=== PATIENT | male | born 1940 | race Hispanic/Latino ===

== ENCOUNTER 2018-04-12 13:14 | Inpatient (IN) | payer MEDICARE ==
[2018-04-12 16:38] LABS: Basophils % (Auto) 0.4 % (0.0-1.8); Eosinophils # (Auto) 0.2 K/mm3 (0.0-0.4); Eosinophils % (Auto) 3.3 % (0.0-4.3); Hematocrit 25.3 % (35.5-45.6); Hemoglobin 8.4 gm/dl (11.8-15.2); Lymphocytes # (Auto) 1.2 K/mm3 (1.2-5.4); Mean Corpuscular HGB Conc 33 % (32-34); Mean Corpuscular Volume 90 fl (84-94); Monocytes # (Auto) 0.5 K/mm3 (0.0-0.8); Platelet Count 248 K/mm3 (140-440); Red Blood Count 2.83 M/mm3 (3.65-5.03); Red Cell Distribution Width 14.7 % (13.2-15.2)
[2018-04-12 16:52] LABS: Calcium 8.6 mg/dL (8.4-10.2)
[2018-04-12 17:10] LABS: Chol/HDL Ratio 3.91 %
--- NOTE | 2018-04-12 18:27 | Emergency Department Report ---
ED Dizziness HPI - General Chief Complaint: Dizziness Stated Complaint: HYPOTENSION Time Seen by Provider: 04/12/18 15:22 Source: patient Mode of arrival: Stretcher Limitations: No Limitations - History of Present Illness Initial Comments: 77-year-old male presents to ED with complaint of dizziness and hypotension at home. Patient recently discharged from this facility one week ago following cardiac arrest. Patient currently wearing a life vest. States he was seen by his airport shuttle driver Dr. Fuentes on yesterday and was told to restart his normal blood p ressure medications. Patient states he he took 2 medications last night, took all of them this morning. Patient states after he took the medications he began to feel dizzy and lightheaded. Says he took his blood pressure home and blood pressure of 60s/40s. Patient decided to come to the ED at that time. I states it is deep with somewhat by the name of Inessa at the office of [facility] and was told to d/c his hydralazine. MD Complaint: dizziness -: This afternoon Timing: sudden onset Description: lightheadedness, near-syncope Severity: moderate Improves With: remaining still Worsens With: position Associated Symptoms: weakness. denies: chest pain, confusion, diaphoresis, fever/chills, shortness of breath, syncope - Related Data Home Medications Medication Instructions Recorded Confirmed Last Taken Dorzolamide HCl/Timolol Maleat 10 ml OU BID 03/25/18 04/02/18 03/25/18 08:00 [Cosopt Eye Drops] Previous Rx's Medication Instructions Recorded Last Taken Type ALPRAZolam [Xanax TAB] 0.25 mg PO Q12H PRN #60 tablet 03/31/18 Unknown Rx Brimonidine Tartrate [Brimonidine 10 ml OU BID #1 03/31/18 Unknown Rx Tartrate 0.2%] Clopidogrel [Plavix] 75 mg PO QDAY #30 tablet 03/31/18 Unknown Rx ISOSORBIDE MONOnitrate [Imdur ER] 30 mg PO QDAY #30 tablet 03/31/18 Unknown Rx Pravastatin [Pravachol] 40 mg PO QHS #30 tablet 03/31/18 Unknown Rx glipiZIDE [glipiZIDE XL] 10 mg PO BID #60 tab.er.24 03/31/18 Unknown Rx prednisoLONE 15 ml PO QDAY 5 Days ml 03/31/18 Unknown Rx prednisoLONE ACETATE 1% [Pred 2 drops OS DAILY #1 bottle 03/31/18 Unknown Rx Forte 1%] Apixaban [Eliquis] 2.5 mg PO Q12HR #60 tablet 04/06/18 Unknown Rx Famotidine [Pepcid] 20 mg PO HS #30 tablet 04/06/18 Unknown Rx Metoprolol [Lopressor TAB] 25 mg PO BID #60 tablet 04/06/18 Unknown Rx Tamsulosin [Flomax] 0.4 mg PO QDAY #30 cap 04/06/18 Unknown Rx hydrALAZINE [Apresoline TAB] 10 mg PO Q8HR #90 tablet 04/06/18 Unknown Rx Allergies Allergy/AdvReac Type Severity Reaction Status Date / Time Neuromuscular Blockers, Allergy Headache Verified 03/25/18 17:28 Steroidal [Steroidal Neuromuscular Blockers] ED Review of Systems ROS: Stated complaint: HYPOTENSION Other details as noted in HPI Comment: All other systems reviewed and negative Constitutional: denies: chills, fever Respiratory: denies: shortness of breath Cardiovascular: denies: chest pain Gastrointestinal: denies: nausea, vomiting, diarrhea Neurological: denies: headache ED Past Medical Hx - Past Medical History Hx Hypertension: Yes Hx CVA: Yes Hx Congestive Heart Failure: Yes Hx Diabetes: Yes Hx Arthritis: Yes Hx Asthma: No Hx COPD: No Hx HIV: No Additional medical history: glucoma - Surgical History Hx Coronary Stent: No Hx Open Heart Surgery: No Hx Pacemaker: No Hx Internal Defibrillator: No Hx Cholecystectomy: No Hx Appendectomy: No Hx Breast Surgery: No Additional Surgical History: Corneal transplant(bilateral) - Social History Smoking Status: Never Smoker Substance Use Type: None - Medications Home Medications: Home Medications Medication Instructions Recorded Confirmed Last Taken Type Dorzolamide HCl/Timolol Maleat 10 ml OU BID 03/25/18 04/02/18 03/25/18 08:00 History [Cosopt Eye Drops] ALPRAZolam [Xanax TAB] 0.25 mg PO Q12H PRN #60 tablet 03/31/18 04/02/18 Unknown Rx Brimonidine Tartrate [Brimonidine 10 ml OU BID #1 03/31/18 04/02/18 Unknown Rx Tartrate 0.2%] Clopidogrel [Plavix] 75 mg PO QDAY #30 tablet 03/31/18 04/02/18 Unknown Rx ISOSORBIDE MONOnitrate [Imdur ER] 30 mg PO QDAY #30 tablet 03/31/18 04/02/18 Unknown Rx Pravastatin [Pravachol] 40 mg PO QHS #30 tablet 03/31/18 04/02/18 Unknown Rx glipiZIDE [glipiZIDE XL] 10 mg PO BID #60 tab.er.24 03/31/18 04/02/18 Unknown Rx prednisoLONE 15 ml PO QDAY 5 Days ml 03/31/18 04/02/18 Unknown Rx prednisoLONE ACETATE 1% [Pred 2 drops OS DAILY #1 bottle 03/31/18 04/02/18 Unknown Rx Forte 1%] Apixaban [Eliquis] 2.5 mg PO Q12HR #60 tablet 04/06/18 Unknown Rx Famotidine [Pepcid] 20 mg PO HS #30 tablet 04/06/18 Unknown Rx Metoprolol [Lopressor TAB] 25 mg PO BID #60 tablet 04/06/18 Unknown Rx Tamsulosin [Flomax] 0.4 mg PO QDAY #30 cap 04/06/18 Unknown Rx hydrALAZINE [Apresoline TAB] 10 mg PO Q8HR #90 tablet 04/06/18 Unknown Rx ED Physical Exam - General Limitations: No Limitations General appearance: alert, in no apparent distress - Head Head exam: Present: atraumatic, normocephalic - Eye Eye exam: Present: normal appearance - ENT ENT exam: Present: mucous membranes moist - Neck Neck exam: Present: normal inspection - Respiratory Respiratory exam: Present: normal lung sounds bilaterally. Absent: respiratory distress - Cardiovascular Cardiovascular Exam: Present: regular rate, normal rhythm, other (Life Vest in place) - GI/Abdominal GI/Abdominal exam: Present: soft. Absent: distended, tenderness - Extremities Exam Extremities exam: Present: normal inspection - Neurological Exam Neurological exam: Present: alert, oriented X3 - Psychiatric Psychiatric exam: Present: normal affect, normal mood - Skin Skin exam: Present: warm, dry, intact, normal color. Absent: rash ED Course Vital Signs 04/12/18 04/12/18 04/12/18 13:21 15:21 15:30 Temperature 97.8 F Pulse Rate 68 57 L Respiratory 16 14 Rate Blood Pressure 106/60 124/71 122/75 Blood Pressure [Left] O2 Sat by Pulse 95 Oximetry 04/12/18 04/12/18 04/12/18 15:33 15:46 16:00 Temperature 97.9 F Pulse Rate 57 L 68 65 Respiratory 14 12 15 Rate Blood Pressure 122/75 130/74 Blood Pressure 122/75 [Left] O2 Sat by Pulse 96 Oximetry 04/12/18 04/12/18 04/12/18 16:16 16:30 16:46 Temperature Pulse Rate 64 76 69 Respiratory 15 18 14 Rate Blood Pressure 130/74 130/74 130/74 Blood Pressure [Left] O2 Sat by Pulse Oximetry 04/12/18 04/12/18 04/12/18 17:00 17:16 17:30 Temperature Pulse Rate 71 84 107 H Respiratory 16 21 17 Rate Blood Pressure 132/66 132/66 118/70 Blood Pressure [Left] O2 Sat by Pulse Oximetry 04/12/18 04/12/18 04/12/18 17:46 18:00 18:16 Temperature Pulse Rate 67 86 76 Respiratory 19 23 18 Rate Blood Pressure 118/70 116/68 116/68 Blood Pressure [Left] O2 Sat by Pulse Oximetry - Consultations Consultation #1: 04/12/18 18:[address] Mccurdy, airport shuttle driver. Recommends admssion since hypotensive at home to go over home meds and observe BP. Not concerned with trop elevation and EKG change given cardiac arrest on last admission and cardiac cath that showed nonobstructive 3 vessel disease. Does not recommend heparinization. ED Medical Decision Making - Lab Data Result diagrams: 04/12/18 16:31 04/12/18 16:31 - EKG Data -: EKG Interpreted by Hi EKG shows normal: sinus rhythm Rate: normal - EKG Data When compared to previous EKG there are: changes noted (compared to 04/03/18) Interpretation: other (prolonged QT; new T wvae inversions in II, III, aVF, V2, V3) - Medical Decision Making 73-year-old male with cardiomyopathy present COPD with hypotension. This hypotension is likely due to medication effect, as patient was currently restarted on all of his normal blood pressure medications. Patient with normal BPs here in the ED throughout his stay. EKG done today to appear to that as compared to his EKG from 9 days ago. Patient also had minimal elevation in his troponin which today was 0.143, compared to 4.64 on April 02. Patient underwent cardiac catheterization on last hospital stay and was found to have three-vessel disease. Was also discharged home on a Life Vest which she is currently wearing. Spoke with Dr. Mccurdy, airport shuttle driver, does not recommend heparinization. Wants patient admitted so that current medications may be reviewed in light of his hypotension. Brendan admit to hospitalist. - Differential Diagnosis medication effect, dehydration, ACS Critical care attestation.: If time is entered above; I have spent that time in minutes in the direct care of this critically ill patient, excluding procedure time. ED Disposition Clinical Impression: Dizziness Disposition: [id number] OP ADMIT IP TO THIS HOSP Is pt being admited?: Yes Condition: Stable Referrals: PRIMARY CARE, [Primary Care Provider] - 3-5 Days Time of Disposition: 18:27
--- NOTE | 2018-04-12 22:39 | History and Physical Report ---
History of Present Illness Date of examination: 04/12/18 History of present illness: 77-year-old man history of hypertension, diabetes, CHF, CAD, CVA, glaucoma, Cervical Radiculopathy comes to the emergency room for evaluation comes to the e for low Blood pressure. Patient was just discharged from the hospital on Apr. He followed up with his metalsmith apprentice on Monday and was told to restart his antihypertensives except clonidine. He took medications on Monday, his blood pressure dropped, he felt dizzy and had generalized weakness Review of systems Constitutional: no weight loss, chills, fever Ears, eyes, nose, mouth and throat: no nasal congestion, no nasal discharge, no sinus pressure, no vision change, no red eye. Neck: No neck pain or rigidity. Cardiovascular: no palpitations, chest pain Respiratory: no cough, shortness of breath Gastrointestinal: no hematochezia, abdominal pain Genitourinary : no frequency , no hematuria Musculoskeletal: no joint swelling or muscle ache Integumentary: no rash, no pruritis Neurological: no parathesias, no focal weakness Endocrine: no cold or heat intolerance, no polyuria or polydipsia Hematologic/Lymphatic: no easy bruising, no easy bleeding, no gland swelling Allergic/Immunologic: no urticaria, no angioedema. PAST MEDICAL HISTORY: hypertension, diabetes, CHF, CVA, glaucoma,Cervical Radiculopathy, PAST SURGICAL HISTORY: Corneal transplant SOCIAL HISTORY: Denies alcohol, drugs, tobacco FAMILY HISTORY: Hypertension Medications and Allergies Allergies Allergy/AdvReac Type Severity Reaction Status Date / Time Neuromuscular Blockers, Allergy Headache Verified 03/25/18 17:28 Steroidal [Steroidal Neuromuscular Blockers] Home Medications Medication Instructions Recorded Confirmed Last Taken Type Dorzolamide HCl/Timolol Maleat 10 ml OU BID 03/25/18 04/02/18 03/25/18 08:00 History [Cosopt Eye Drops] ALPRAZolam [Xanax TAB] 0.25 mg PO Q12H PRN #60 tablet 03/31/18 04/02/18 Unknown Rx Brimonidine Tartrate [Brimonidine 10 ml OU BID #1 03/31/18 04/02/18 Unknown Rx Tartrate 0.2%] Clopidogrel [Plavix] 75 mg PO QDAY #30 tablet 12/29/18 12/31/18 Unknown Rx ISOSORBIDE MONOnitrate [Imdur ER] 30 mg PO QDAY #30 tablet 03/31/18 04/02/18 Unk nown Rx Pravastatin [Pravachol] 40 mg PO QHS #30 tablet 03/31/18 04/02/18 Unknown Rx glipiZIDE [glipiZIDE XL] 10 mg PO BID #60 tab.er.24 03/31/18 04/02/18 Unknown Rx prednisoLONE 15 ml PO QDAY 5 Days ml 03/31/18 04/02/18 Unknown Rx prednisoLONE ACETATE 1% [Pred 2 drops OS DAILY #1 bottle 03/31/18 04/02/18 Unknown Rx Forte 1%] Apixaban [Eliquis] 2.5 mg PO Q12HR #60 tablet 04/06/18 Unknown Rx Famotidine [Pepcid] 20 mg PO HS #30 tablet 04/06/18 Unknown Rx Metoprolol [Lopressor TAB] 25 mg PO BID #60 tablet 04/06/18 Unknown Rx Tamsulosin [Flomax] 0.4 mg PO QDAY #30 cap 04/06/18 Unknown Rx hydrALAZINE [Apresoline TAB] 10 mg PO Q8HR #90 tablet 04/06/18 Unknown Rx Exam - Physical Exam Narrative exam: General Apperance: The patient lying in bed, breathing comfortable HEENT: Normocephalic, atraumatic. Pupils equally round and reactive to light, EOMI, no sclericterus or JVD or thyromegaly or nodule. , no carotid bruit, mucous membranes moist, no exudate or erythema Heart: S1-S2, regular is rhythm Lungs: Clear to auscultation bilaterally, breathing comfortable Abdomen: Positive bowel sounds, soft, nontender, nondistended, no organomegaly Extremities: No edema cyanosis clubbing Skin: no rash, nodule, warm and dry Neuro: cranial nerves 2-12 intact, speech is fluent, motor/sensory intact - Constitutional Vitals: Temp Pulse Resp BP Pulse Ox 97.9 F 67 17 108/59 93 04/12/18 15:33 04/12/18 19:16 04/12/18 19:16 04/12/18 19:16 04/12/18 19:00 Results - Labs CBC & Chem 7: 04/12/18 16:31 04/12/18 16:31 Labs: Abnormal lab results 04/12/18 04/12/18 04/12/18 Range/Units 16:31 16:31 17:03 RBC 2.83 L (3.65-5.03) M/mm3 Hgb 8.4 L (11.8-15.2) gm/dl Hct 25.3 L (35.5-45.6) % [place] % (Auto) 10.0 H (0.0-7.3) % Creatinine 2.0 H (0.8-1.5) mg/dL Glucose 52 L (75-100) mg/dL POC Glucose 56 L (70-105) Troponin T 0.143 H* (0.00-0.029) ng/mL HDL Cholesterol 36 L (40-59) mg/dL 04/12/18 Range/Units 18:31 RBC (3.65-5.03) M/mm3 Hgb (11.8-15.2) gm/dl Hct (35.5-45.6) % [place] % (Auto) (0.0-7.3) % Creatinine (0.8-1.5) mg/dL Glucose (75-100) mg/dL POC Glucose 125 H (70-105) Troponin T (0.00-0.029) ng/mL HDL Cholesterol (40-59) mg/dL - Imaging and Cardiology EKG: image reviewed Chest x-ray: image reviewed Assessment and Plan Assessment Hypotension, resolved diabetes CHF, stable Coronary artery disease CVA glaucoma Cervical Radiculopathy Plan Admit to medicine Hold antihypertensives Consult cardiology Check fingersticks, insulin sliding scale Patient had recent GI bleed, anemia, will hold Lovenox
[2018-04-12] MEDS ORDERED: TYLENOL PO PRN (23:18)
[2018-04-12] MEDS ORDERED: ZOFRAN IV PRN (23:18)
[2018-04-12] MEDS ORDERED: SODIUM CHLORIDE FLUSH SYRINGE 10 ML IV PRN (23:18)
[2018-04-12] MEDS ORDERED: D50W (25GM) Syringe IV PRN (23:18)
[2018-04-13] MEDS: PERCOCET 5/325 PO PRN ×4 (00:26→20:10)
[2018-04-13 00:28] LABS: Creatine Kinase MB 2.4 ng/mL (0.0-4.0)
[2018-04-13] MEDS ORDERED: D50W (25GM) Syringe IV PRN (03:49)
[2018-04-13 03:55] LABS: Basophils % (Auto) 0.4 % (0.0-1.8); Eosinophils # (Auto) 0.2 K/mm3 (0.0-0.4); Eosinophils % (Auto) 4.9 % (0.0-4.3); Hematocrit 24.5 % (35.5-45.6); Hemoglobin 8.1 gm/dl (11.8-15.2); Lymphocytes # (Auto) 1.3 K/mm3 (1.2-5.4); Lymphocytes % (Auto) 26.4 % (13.4-35.0); Mean Corpuscular HGB Conc 33 % (32-34); Mean Corpuscular Volume 90 fl (84-94); Monocytes # (Auto) 0.6 K/mm3 (0.0-0.8); Monocytes % (Auto) 11.5 % (0.0-7.3); Platelet Count 251 K/mm3 (140-440); Red Blood Count 2.73 M/mm3 (3.65-5.03); Red Cell Distribution Width 14.9 % (13.2-15.2)
[2018-04-13 05:50] LABS: Creatine Kinase MB 2.5 ng/mL (0.0-4.0)
[2018-04-13] MEDS: HumaLOG SUB-Q SCH ×4 (07:57→21:07)
--- NOTE | 2018-04-13 07:58 | Progress Note ---
Assessment and Plan Assessment and plan: 77-year-old man history of hypertension, diabetes, CHF, CAD, CVA, glaucoma, Cervical Radiculopathy comes to the emergency room for evaluation comes to the e for low Blood pressure. Patient was just discharged from the hospital on April 06. He followed up with his reporting specialist on Monday and was told to restart his antihypertensives except clonidine. He took medications on Monday, his blood pressure dropped, he felt dizzy and had generalized weakness PAST MEDICAL HISTORY: hypertension, diabetes, CHF, CVA, glaucoma,Cervical Radiculopathy, Hypotension, resolved, was likely due to polypharmacy, optimize bp meds diabetes; insulins ss hypoglycemic 50s on presentation, A1c is 6.1, glipizide on hold CAD, CHF, stable; optimize meds Elevated trop denies CP, Cardiology consulted hx of CVA glaucoma Cervical Radiculopathy -cont meds for his chronic conditions CKD, cr is 2, bl is about 1.7 Judi vasomotor nephropathy, IVF, imrpoving PAF with hypercoaguable state on metoprolol, refusing to take OAC, the risks and benefits were explained to h im, but he continues to refuse, he said eliquis was too expensive and he does not want to take warfarin, will give ASA as that is all he will accept DVT ppx- chemical History Interval history: Review of systems Constitutional: No fevers, no malaise, no joint pains CVS: No chest pain, no orthopnea, no dyspnea on exertion, no pedal edema GI: No abdominal pain, no diarrhea, no vomiting, no constipation Respiratory: No shortness of breath, no wheezing, no coughing Hospitalist Physical - Physical exam Narrative exam: General.: Appears well, no distress, nontoxic HEENT: Moist mucous membranes, extraocular muscles intact, no lymphadenopathy Neck: supple Cardiac: S1-S2 heard Lungs: clear to auscultation bilaterally Abdomen: soft , nontender, nondistended, bowel sounds positive Extremities: no edema clubbing or cyanosis Skin: no rash or lesions Neurologic: no gross focal deficits Psych: calm, and cooperative - Constitutional Vitals: Temp Pulse Resp BP Pulse Ox 97.9 F 77 20 137/77 95 04/13/18 07:36 04/13/18 07:36 04/13/18 07:36 04/13/18 07:36 04/13/18 07:36 Results - Labs CBC & Chem 7: 04/13/18 03:48 04/12/18 16:31 Labs: Laboratory Last Values WBC 4.9 K/mm3 (4.5-11.0) 04/13/18 03:48 RBC 2.73 M/mm3 (3.65-5.03) L 04/13/18 03:48 Hgb 8.1 gm/dl (11.8-15.2) L 04/13/18 03:48 Hct 24.5 % (35.5-45.6) L 04/13/18 03:48 MCV 90 fl (84-94) 04/13/18 03:48 MCH 30 pg (28-32) 04/13/18 03:48 MCHC 33 % (32-34) 04/13/18 03:48 RDW 14.9 % (13.2-15.2) 04/13/18 03:48 Plt Count 251 K/mm3 (140-440) 04/13/18 03:48 Lymph % (Auto) 26.4 % (13.4-35.0) 04/13/18 03:48 [place] % (Auto) 11.5 % (0.0-7.3) H 04/13/18 03:48 Eos % (Auto) 4.9 % (0.0-4.3) H 04/13/18 03:48 Baso % (Auto) 0.4 % (0.0-1.8) 04/13/18 03:48 Lymph # 1.3 K/mm3 (1.2-5.4) 04/13/18 03:48 [place] # 0.6 K/mm3 (0.0-0.8) 04/13/18 03:48 Eos # 0.2 K/mm3 (0.0-0.4) 04/13/18 03:48 Baso # 0.0 K/mm3 (0.0-0.1) 04/13/18 03:48 Seg Neutrophils % 56.8 % (40.0-70.0) 04/13/18 03:48 Seg Neutrophils # 2.8 K/mm3 (1.8-7.7) 04/13/18 03:48 Sodium 137 mmol/L (137-145) 04/12/18 16:31 Potassium 3.9 mmol/L (3.6-5.0) 04/12/18 16:31 Chloride 102.3 mmol/L (98-107) 04/12/18 16:31 Carbon Dioxide 26 mmol/L (22-30) 04/12/18 16:31 Anion Gap 13 mmol/L 04/12/18 16:31 BUN 20 mg/dL (9-20) 04/12/18 16:31 Creatinine 2.0 mg/dL (0.8-1.5) H 04/12/18 16:31 Estimated GFR 33 ml/min 04/12/18 16:31 BUN/Creatinine Ratio 10 % 04/12/18 16:31 Glucose 52 mg/dL (75-100) L 04/12/18 16:31 POC Glucose 77 (70-105) 04/13/18 06:06 Calcium 8.6 mg/dL (8.4-10.2) 04/12/18 16:31 Total Creatine Kinase 42 units/L (55-170) L 04/13/18 04:39 CK-MB (CK-2) 2.5 ng/mL (0.0-4.0) 04/13/18 04:39 CK-MB (CK-2) Rel Index 5.9 (0-4) H 04/13/18 04:39 Troponin T 0.141 ng/mL (0.00-0.029) H* 04/13/18 04:39 Triglycerides 113 mg/dL (2-149) 04/12/18 16:31 Cholesterol 141 mg/dL (50-199) 04/12/18 16:31 LDL Cholesterol Direct 98 mg/dL (50-130) 04/12/18 16:31 HDL Cholesterol 36 mg/dL (40-59) L 04/12/18 16:31 Cholesterol/HDL Ratio 3.91 % 04/12/18 16:31
[2018-04-13] MEDS ORDERED: DUONEB *Not for PRN Use IH ONE (08:41)
[2018-04-13] MEDS ORDERED: LOVENOX SUB-Q SCH ×2 (10:00→22:00)
[2018-04-13] MEDS ORDERED: LOPRESSOR PO SCH (10:00)
--- NOTE | 2018-04-13 10:15 | Consultation ---
Addendum entered and electronically signed by KADEN SETHI MD 04/13/18 11:23: Patient seen and examined by me Agree with DESKTOP TECHNICIAN assessment and plan Iatrogenic hypotension Resume HF specific meds at a low dose Start toprol XL 25 mg po daily and losartan 25 mg po daily Do not restart hydralazine, hydrochlorothiazide upon discharge Patient educated to take Hytrin at bedtime instead of 8 am May go home - no further work-up is needed Original Note: History of Present Illness Consult date: 04/13/18 Consult reason: hypotension History of present illness: Mr Lainez is a 77 year old male with a history of non-obstructive coronary artery disease and nonischemic cardiomyopathy. Lifevest monitoring is in place. Patient is also on rate controlling agents for paroxysmal atrial fibrillation. Patient was previously prescribed low dose eliquis for oral anticoagulation but the patient has since declined to take due to cost. As an outpatient, risk and benefits has been extensively discussed with the patient including other oral anticoagulation agents. Patient declined and does not wish to take oral anticoagulation. Co-morbidities includes chronic renal disease, hypertension and anemia. Patient returns to this hospital with complaints of dizziness and hypotension. Patient denies loss of consciousness. Patient reports he is taking multiple medications including Losartan 100mg daily, HCTZ 50mg, Hytrin 10mg and Metoprolol 50mg twice a day. Blood pressure 106/60 on initial workup. EKG is a sinus rhythm with nonspecific lateral ST and T-wave changes. Cardiac consultation was requested. Medications and Allergies Allergies Allergy/AdvReac Type Severity Reaction Status Date / Time Neuromuscular Blockers, Allergy Headache Verified 03/25/18 17:28 Steroidal [Steroidal Neuromuscular Blockers] Home Medications Medication Instructions Recorded Confirmed Last Taken Type glipiZIDE [glipiZIDE XL] 10 mg PO BID #60 tab.er.24 03/31/18 04/13/18 04/12/18 Rx Losartan [Cozaar] 100 mg PO QDAY 04/13/18 04/13/18 04/12/18 History Metoprolol [Lopressor TAB] 100 mg PO DAILY 04/13/18 04/13/18 04/12/18 History Terazosin [Hytrin] 5 mg PO DAILY 04/13/18 04/13/18 04/12/18 History hydroCHLOROthiazide [HCTZ] 25 mg PO QDAY 01/02/1904/13/18 04/12/18 History Active Meds: Active Medications Acetaminophen (Tylenol) 650 mg PO Q4H PRN PRN Reason: Pain MILD(1-3)/Fever >100.5/BANGURA Dextrose (D50w (25gm) Syringe) 50 ml IV PRN PRN PRN Reason: Hypoglycemia Enoxaparin Sodium (Lovenox) 40 mg SUB-Q QDAY@2200 BETH Insulin Human Lispro (Humalog) 0 unit SUB-Q ACHS [facility]; Protocol Last Admin: 04/13/18 07:57 Dose: Not Given Documented by: Metoprolol Tartrate (Lopressor) 25 mg PO BID [facility] Ondansetron HCl (Zofran) 4 mg IV Q8H PRN PRN Reason: Nausea And Vomiting Oxycodone/Acetaminophen (Percocet 5/325) 1 tab PO Q6H PRN PRN Reason: Pain, Moderate (4-6) Last Admin: 04/13/18 08:29 Dose: 1 tab Documented by: Sodium Chloride (Sodium Chloride Flush Syringe 10 Ml) 10 ml IV BID [facility] Sodium Chloride (Sodium Chloride Flush Syringe 10 Ml) 10 ml IV PRN PRN PRN Reason: LINE FLUSH Physical Examination Vital Signs Temp Pulse Resp BP Pulse Ox 97.8 F 68 16 106/60 95 04/12/18 13:21 04/12/18 13:21 04/12/18 13:21 04/12/18 13:21 04/12/18 13:21 General appearance: no acute distress HEENT: Positive: PERRL Neck: Positive: trachea midline Cardiac: Positive: Reg Rate and Rhythm Lungs: Positive: Decreased Breath Sounds Neuro: Positive: Grossly Intact Extremities: Absent: edema Results 04/13/18 03:48 04/12/18 16:31 Cardiac Enzymes 04/12/18 04/13/18 Range/Units 23:42 04:39 CK-MB (CK-2) 2.4 2.5 (0.0-4.0) ng/mL Lipids 04/12/18 Range/Units 16:31 Triglycerides 113 (2-149) mg/dL Cholesterol 141 (50-199) mg/dL HDL Cholesterol 36 L (40-59) mg/dL Cholesterol/HDL Ratio 3.91 % CBC 04/12/18 04/13/18 Range/Units 16:31 03:48 WBC 4.8 4.9 (4.5-11.0) K/mm3 RBC 2.83 L 2.73 L (3.65-5.03) M/mm3 Hgb 8.4 L 8.1 L (11.8-15.2) gm/dl Hct 25.3 L 24.5 L (35.5-45.6) % Plt Count 248 251 (140-440) K/mm3 Lymph # 1.2 1.3 (1.2-5.4) K/mm3 [place] # 0.5 0.6 (0.0-0.8) K/mm3 Eos # 0.2 0.2 (0.0-0.4) K/mm3 Baso # 0.0 0.0 (0.0-0.1) K/mm3 Comprehensive Metabolic Panel 04/12/18 Range/Units 16:31 Sodium 137 (137-145) mmol/L Potassium 3.9 (3.6-5.0) mmol/L Chloride 102.3 (98-107) mmol/L Carbon Dioxide 26 (22-30) mmol/L BUN 20 (9-20) mg/dL Creatinine 2.0 H (0.8-1.5) mg/dL Glucose 52 L (75-100) mg/dL Calcium 8.6 (8.4-10.2) mg/dL Assessment and Plan Hypotension Paroxysmal atrial fibrillation patient declines oral anticoagulation. Dilated nonischemic cardiomyopathy, EF 15%. Cardiac cath 04/05/18 revealed diffuse nonobstructive coronary disease. Medical therapy is recommended.
[2018-04-13] MEDS: SODIUM CHLORIDE FLUSH SYRINGE 10 ML IV SCH ×2 (10:30→21:11)
[2018-04-13] MEDS ORDERED: ECOTRIN PO SCH (12:00)
[2018-04-13] MEDS: NACL 0.45% 1000 ML 1,000 ML IV SCH (17:45)
[2018-04-13 19:09] LABS: Calcium 8.4 mg/dL (8.4-10.2)
[2018-04-13] MEDS ORDERED: PRAVACHOL PO SCH (22:00)
[2018-04-14] MEDS: NACL 0.45% 1000 ML 1,000 ML IV SCH ×2 (01:45→09:05)
[2018-04-14] MEDS: PERCOCET 5/325 PO PRN (02:22)
[2018-04-14 07:28] VITALS: BP 163/102
[2018-04-14] MEDS: HumaLOG SUB-Q SCH ×2 (08:13→15:29)
[2018-04-14] MEDS: SODIUM CHLORIDE FLUSH SYRINGE 10 ML IV SCH (09:08)
[2018-04-14] MEDS ORDERED: HALFPRIN EC PO SCH (10:00)
[2018-04-14] MEDS ORDERED: COZAAR PO SCH (10:00)
[2018-04-14] MEDS ORDERED: TOPROL XL PO SCH (10:00)
--- NOTE | 2018-04-14 11:13 | Progress Note ---
Assessment and Plan Iatrogenic Hypotension: Now resolved and BP is again elevated. Paroxysmal atrial fibrillation patient declines oral anticoagulation. Dilated nonischemic cardiomyopathy, EF 15%. Cardiac cath 04/05/18 revealed diffuse nonobstructive coronary disease. Medical therapy is recommended. Recommend: Stop IV fluids. Slightly increase toprol to 50 mg per day OK to DC from cardiac perspective with f/u with primary databases software consultant (Dr Fuentes) next week. Subjective Date of service: 04/14/18 Interval history: Pt is feeling better and wants to go home. Objective Vital Signs Temp Pulse Resp BP Pulse Ox 04/14/18 09:48 98 04/14/18 09:07 89 163/102 04/14/18 07:14 97.9 F 89 18 163/102 96 04/14/18 04:07 98.0 F 91 H 173/99 95 04/13/18 23:03 98.1 F 88 16 142/86 96 04/13/18 21:00 99 H 04/13/18 20:52 98.0 F 94 H 16 138/85 96 04/13/18 15:55 97.9 F 96 H 20 149/92 97 04/13/18 13:00 68 - Physical Examination HEENT: Positive: PERRL Neck: Positive: trachea midline Cardiac: Positive: Reg Rate and Rhythm Lungs: Positive: clear to auscultation Neuro: Positive: Grossly Intact Extremities: Absent: edema - Labs and Meds Comprehensive Metabolic Panel 04/13/18 Range/Units 03:48 Sodium 137 (137-145) mmol/L Potassium 3.9 (3.6-5.0) mmol/L Chloride 101.9 (98-107) mmol/L Carbon Dioxide 20 L (22-30) mmol/L BUN 21 H (9-20) mg/dL Creatinine 1.9 H (0.8-1.5) mg/dL Glucose 105 H (75-100) mg/dL Calcium 8.4 (8.4-10.2) mg/dL - Imaging and Cardiology EKG: image reviewed
--- NOTE | 2018-04-14 11:38 | Discharge Summary ---
Providers - Providers Date of Admission: 04/12/18 22:37 Attending physician: NICK ESPANA MD 04/12/18 18:26 Consult to Physician [CONS] Stat Comment: Consulting Provider: GUY BARBA Physician Instructions: Reason For Exam: abnormal ekg Primary care physician: INTERNATIONAL RECRUITER Hospitalization Condition: Stable Hospital course: 77-year-old man history of hypertension, diabetes, CHF, CAD, CVA, glaucoma, Cervical Radiculopathy comes to the emergency room for evaluation comes to the e for low Blood pressure. Patient was just discharged from the hospital on April 06. 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 He took medications on Monday, his blood pressure dropped, he felt dizzy and had generalized weakness * Given that the patient suffered low blood pressure, his blood pressure medications were optimized * He was hypoglycemic on presentation in the 50s, therefore glipizide was put on hold * He was seen by cardiology, his cardiac medications were optimized. Given his history of paroxysmal atrial fibrillation, the patient was offered anticoagulation, and he was advised that it is of his benefit to reduce risk of stroke. He adamantly refused, he stated the eliquis was too expensive and he did not want to be on warfarin and have to modify his diet and have frequent blood draws. The patient accepts the risk of stroke, and therefore he was given aspirin as stroke prophylaxis. * He received IV fluids for mild acute kidney injury, and his renal function imp roved. 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, IVF, PAF with hypercoaguable state Disposition: [id number] HOME [facility] Time spent for discharge: 33 mins Core Measure Documentation - Palliative Care Palliative Care/ Comfort Measures: Not Applicable - Core Measures Any of the following diagnoses?: none Exam - Constitutional Vitals: Temp Pulse Resp BP Pulse Ox 97.9 F 89 18 163/102 98 04/14/18 07:14 04/14/18 09:07 04/14/18 07:14 04/14/18 09:07 04/14/18 09:48 General appearance: Present: no acute distress, well-nourished - EENT Eyes: Present: PERRL ENT: hearing intact, clear oral mucosa - Neck Neck: Present: supple, normal ROM - Respiratory Respiratory effort: normal Respiratory: bilateral: CTA - Cardiovascular Heart Sounds: Present: S1 & S2. Absent: rub, click - Extremities Extremities: pulses symmetrical, No edema Peripheral Pulses: within normal limits - Abdominal General gastrointestinal: Present: soft, non-tender, non-distended, normal bowel sounds Male genitourinary: Present: normal - Integumentary Integumentary: Present: clear, warm, dry - Musculoskeletal Musculoskeletal: gait normal, strength equal bilaterally - Psychiatric Psychiatric: appropriate mood/affect, intact judgment & insight - Neurologic Neurologic: CNII-XII intact, moves all extremities, other (partially blind) Plan Follow up with: PRIMARY CARE, [Primary Care Provider] - 3-5 Days Prescriptions: Aspirin EC [Aspirin Enteric Coated TAB] 81 mg PO QDAY #30 tablet Losartan [Cozaar] 25 mg PO QDAY #30 tablet Metoprolol Xl [Metoprolol SUCCINATE ER TAB] 50 mg PO QDAY #30 tablet Tamsulosin [Flomax] 0.4 mg PO QDAY #30 cap
[2018-04-15] MEDS ORDERED: TOPROL XL PO SCH (10:00)
== END 2018-04-14 16:30 | disposition home health service (06) | DRG 314 ==
LOC: ED 13:14 → 4A 22:37
PROVIDERS: ADMIT Internal Medicine; ATTEND Internal Medicine
DX: I95.89 Other hypotension (principal); N17.0 Acute kidney failure with tubular necrosis; D68.59 Other primary thrombophilia; I13.0 Hypertensive heart and chronic kidney disease with heart failure and stage 1 through stage 4 chronic kidney disease, or unspecified chronic kidney disease; I50.9 Heart failure, unspecified; I25.10 Atherosclerotic heart disease of native coronary artery without angina pectoris; E11.649 Type 2 diabetes mellitus with hypoglycemia without coma; E11.22 Type 2 diabetes mellitus with diabetic chronic kidney disease; M54.12 Radiculopathy, cervical region; I48.0 Paroxysmal atrial fibrillation; N18.9 Chronic kidney disease, unspecified; H40.9 Unspecified glaucoma; Z82.49 Family history of ischemic heart disease and other diseases of the circulatory system; Z94.7 Corneal transplant status; Z88.8 Allergy status to other drugs, medicaments and biological substances; Z79.01 Long term (current) use of anticoagulants; Z79.899 Other long term (current) drug therapy; Z79.84 Long term (current) use of oral hypoglycemic drugs; Z86.74 Personal history of sudden cardiac arrest; Z86.73 Personal history of transient ischemic attack (TIA), and cerebral infarction without residual deficits
CPT/HCPCS: 36415; 80048; 80061; 82550; 82553; 82962; 83036; 84484; 85025; 87116; 93005; 93010; 96361; 96372; 96374; G0378; A9270-GY; J1650; J1815; J7030